=== PATIENT | female | born 1985 | race Caucasian/White ===

== ENCOUNTER 2016-11-17 10:11 | Emergency (ER) | payer OTHER ==
[~2016-11-17] VITALS: Ht 160 cm; Wt 63.5 kg
--- NOTE | ~2016-11-17 | EKG ---
[place] [address] [facility] [place] [address] ELECTROCARDIOGRAM REPORT Name: ALEXIA STEVENSON [facility]: [facility] [id number] Admission: 11/17/16 Attend Phys: Discharge: 11/17/16 Date of : 85 Report #: [id number] THIS REPORT FOR: //name// [facility] ED Test Date: 2016-11-17 Test Time: 10:24:53 Pat Name: ALEXIA STEVENSON Department: Room: Gender: F Press Operator Assistant: : 1985 Requested By: Helena Dean Order Number: [id number] MD: Yovanny Montenegro Measurements Intervals [place] Rate: 60 P: 28 IA: 116 QRS: 33 QRSD: 102 T: 12 QT: 416 QTc: 416 Interpretive Statements Sinus rhythm Borderline short IA interval No previous ECG available for comparison Electronically Signed On 11-18-2016 18:14:49 CDT by Yovanny Montenegro [email or web address] <ELECTRONICALLY SIGNED> By: Yovanny Montenegro MD, [facility] 11/18/16 1814 1024 1024 Yovanny Montenegro MD, FAC /EPI
[~2016-11-17 10:11] MED LIST: FLAGYL500 MG PO; IBUPROFEN 600600 M1 PO; NOHOMEMEDICATIONS; NORCO 5-325 TA1 EACH PO; TAMSULOSIN HCL0.4 M1 PER TUBE; ZOFRAN ODT4 MG PO
[2016-11-17] MEDS ORDERED: NITROFURANTOIN100 MG PO (10:36)
[2016-11-17 11:07] LABS: URINE BILIRUBIN NEGATIVE (Negative); URINE BLOOD NEGATIVE (Negative); URINE COLOR YELLOW; URINE GLUCOSE-RANDOM* NEGATIVE (Negative); URINE KETONES NEGATIVE (Negative); URINE NITRITE NEGATIVE (Negative); URINE PROTEIN (DIPSTICK) NEGATIVE (Negative); URINE SPECIFIC GRAVITY <= 1.005 (1.003-1.035); URINE UROBILINOGEN 0.2 E.U./dl (0.2-1.0)
[2016-11-17 11:08] LABS: ABSOLUTE NEUTROPHILS 2.8 thou/uL (1.4-8.2); BASOPHILS 0.5 % (0.0-2.0); EOSINOPHILS 3.2 % (0.0-3.0); HEMATOCRIT 37.8 % (37.0-47.0); HEMOGLOBIN 12.6 gm/dL (12.0-15.0); LYMPHOCYTES 34.3 % (24.0-44.0); MCH 30.4 pg (26.0-34.0); MCHC 33.4 g/dL (28.0-37.0); MCV 90.8 fL (80.0-100.0); MONOCYTES 7.3 % (1.0-8.0); PLATELET COUNT 210 thou/uL (150-400); POLYS 54.7 % (36.0-66.0); RBC 4.17 mil/uL (4.20-5.00); RDW 13.9 % (10.5-14.5)
[2016-11-17 11:10] LABS: MANUAL DIFF NO
[2016-11-17 11:14] LABS: ANION GAP 7 mmol/L (7-16); BUN 8 mg/dL (7-18); CALCIUM 8.9 mg/dL (8.5-10.1); CHLORIDE 106 mmol/L (98-107); CO2 26 mmol/L (21-32); CREATININE 0.9 mg/dL (0.6-1.0); GLUCOSE 86 mg/dL (74-106); POTASSIUM 3.5 mmol/L (3.5-5.1); SODIUM 139 mmol/L (136-145)
[2016-11-17 11:23] LABS: ALBUMIN 3.5 g/dL (3.4-5.0); ALKALINE PHOSPHATASE 52 U/L (46-116); SGOT 18 U/L (15-37); SGPT 31 U/L (30-65); TOTAL BILIRUBIN 0.5 mg/dL (<0.1-1.0); TOTAL PROTEIN 7.4 g/dL (6.4-8.2); TROPONIN-I < 0.04 ng/mL (<0.04-0.07)
[2016-11-17 12:51] VITALS: BP 128/70
== END 2016-11-17 12:34 | disposition home or self-care (01) ==
LOC: ER 10:11
PROVIDERS: Physician Assistant
DX: O26.899 Other specified pregnancy related conditions, unspecified trimester (principal); R07.89 Other chest pain; Z3A.00 Weeks of gestation of pregnancy not specified

== ENCOUNTER 2016-12-15 19:33 | Emergency (ER) | payer OTHER ==
[~2016-12-15] VITALS: Ht 160 cm; Wt 72.6 kg
[~2016-12-15 19:33] MED LIST changes: +NITROFURANTOIN100 MG PO
[2016-12-15 20:14] LABS: ABSOLUTE NEUTROPHILS 7.2 thou/uL (1.4-8.2); BASOPHILS 0.4 % (0.0-2.0); EOSINOPHILS 1.2 % (0.0-3.0); HEMOGLOBIN 12.3 gm/dL (12.0-15.0); LYMPHOCYTES 18.1 % (24.0-44.0); MANUAL DIFF NO; MCH 29.5 pg (26.0-34.0); MCHC 32.3 g/dL (28.0-37.0); MCV 91.2 fL (80.0-100.0); MONOCYTES 5.4 % (1.0-8.0); PLATELET COUNT 247 thou/uL (150-400); POLYS 74.9 % (36.0-66.0); RBC 4.17 mil/uL (4.20-5.00); RDW 13.5 % (10.5-14.5); URINE BILIRUBIN NEGATIVE (Negative); URINE BLOOD 3+ (Negative); URINE COLOR YELLOW; URINE GLUCOSE-RANDOM* NEGATIVE (Negative); URINE KETONES TRACE (Negative); URINE NITRITE NEGATIVE (Negative); URINE PROTEIN (DIPSTICK) NEGATIVE (Negative); URINE UROBILINOGEN 0.2 E.U./dl (0.2-1.0); WBC 9.6 thou/uL (4.0-11.0)
[2016-12-15 20:24] LABS: CASTS None Seen /LPF (None Seen); SQUAMOUS None Seen /LPF (0-3); URINE WBC >25 Many /HPF (0-5); WBC CLUMPS Few (None Seen)
[2016-12-15 20:25] LABS: BACTERIA >30 Many /HPF (None Seen); CRYSTALS None Seen /LPF (None Seen); URINE RBC 3-10 Few /HPF (0-2)
[2016-12-15] MEDS ORDERED: MACROBID 100 M100 M1 PO (23:41)
[2016-12-15] MEDS ORDERED: NORCO 5-325 TA1 EACH PO (23:51)
[2016-12-16 00:11] VITALS: BP 106/57
== END 2016-12-15 23:41 | disposition home or self-care (01) ==
LOC: ER 19:33
PROVIDERS: Nurse Practitioner
DX: O03.38 Urinary tract infection following incomplete spontaneous abortion (principal); B96.89 Other specified bacterial agents as the cause of diseases classified elsewhere; Z3A.01 Less than 8 weeks gestation of pregnancy

== ENCOUNTER 2017-11-18 22:33 | Emergency (ER) | payer OTHER ==
[~2017-11-18] VITALS: Ht 160 cm; Wt 72.6 kg
[~2017-11-18 22:33] MED LIST changes: +MACROBID 100 M100 M1 PO
[2017-11-18 22:43] VITALS: BP 138/82
== END 2017-11-18 23:05 | disposition home or self-care (01) ==
LOC: ER 22:33
DX: S16.1XXA Strain of muscle, fascia and tendon at neck level, initial encounter (principal); V49.40XA Driver injured in collision with unspecified motor vehicles in traffic accident, initial encounter; Y93.89 Activity, other specified; Y92.89 Other specified places as the place of occurrence of the external cause; Y99.8 Other external cause status